=== PATIENT | male | born 1930 | race Caucasian/White ===

== ENCOUNTER → 2016-09-24 | Outpatient (CLI) | payer MEDICARE, BC ==
[~2016-09-24] MED LIST: ACET-2890 PO; ACET325T51 PO; AMOX-348 PO; ATOR40TA64 PO; CALC300T37 PO; DOCU-175 PO; EMOL454C7 TOP; HYDR-4246 PO; METF-200 PO; METO50TA5 PO; OMEP20TA11 PO; POLY255P2 PO; RISP1TAB27 PO; TAMS0.4C47 PO; TRIA15CR2 TOP
[2016-09-24 07:20] LABS: ALBUMIN 3.8 G/DL (3.5-5.0); ALBUMIN/GLOBULIN RATIO 1.2 RATIO (1.1-2.2); ALKALINE PHOSPHATASE 111 U/L (38-126); ALT (SGPT) 29 U/L (21-72); AST (SGOT) 19 U/L (17-59); TOTAL PROTEIN 6.9 G/DL (6.3-8.2)
[2016-09-24 07:29] LABS: HEMOGLOBIN A1C 6.6 % (6.1-7.9)
[2016-09-25 00:41] LABS: LDL CHOLESTEROL,CALCULATED 49.4 (66-159); RISK FACTOR 3.4 RATIO (0-5.0); VLDL CHOLESTEROL 21.6 MG/DL (0-28)
== END ==
LOC: LABNH.AP 02:23
PROVIDERS: ATTEND Family Medicine
DX: E11.9 Type 2 diabetes mellitus without complications (principal); E78.5 Hyperlipidemia, unspecified
CPT/HCPCS: 36415; 80061; 80076; 83036; P9604